=== PATIENT | female | born 1955 | race Caucasian/White ===

== ENCOUNTER → 2016-11-23 | Outpatient (CLI) | payer OTHER | LOC: CIMAGING 12:05 | DX: Z12.31 Encounter for screening mammogram for malignant neoplasm of breast (principal) | CPT/HCPCS: G0202 ==

== ENCOUNTER → 2017-05-18 | Outpatient (CLI) | payer OTHER | LOC: FIMAGING 18:22 | PROVIDERS: ATTEND Physician Assistant | DX: M48.02 Spinal stenosis, cervical region (principal); M47.22 Other spondylosis with radiculopathy, cervical region ==

== ENCOUNTER 2017-06-30 12:06 | Day surgery (SDC) | payer OTHER ==
[2017-06-30] MEDS ORDERED: NALOXONE HCL 0.4 MG/ML INJ IVP PRN (12:32)
[2017-06-30] MEDS ORDERED: MIDAZOLAM 2 MG/2 ML VIAL IVP PRN (12:32)
[2017-06-30] MEDS ORDERED: FLUMAZENIL 0.5 MG/5 ML MDV IVP PRN (12:32)
[2017-06-30] MEDS ORDERED: fentaNYL 100 MCG/2 ML INJ IVP PRN (12:32)
[2017-06-30] MEDS ORDERED: MEPERIDINE 25 MG/ML SYR IVP PRN (12:32)
[2017-06-30] MEDS ORDERED: NS 1,000 ML IV SCH (12:45)
[2017-06-30 13:10] VITALS: PULSE 64; RESP 16; TEMP 96.8
--- NOTE | 2017-06-30 13:47 | PDPROPOC ---
Sedation Plan of Care Sedation Plan of Care: vital signs stable, mental status noted, patient educated of risks, benefits, alternatives, patient can tolerate sedation ASA Classification: ASA 1 Planned drugs: fentanyl, midazolam Mallampati Score: Class 1 Mallampati Reference Image: Patient passed 3-3-2 rule?: Yes
--- NOTE | 2017-06-30 13:49 | PDGENHP ---
History & Physical Chief Complaint: C/S PAIN History of Present Illness: NECK PAIN RADIATING RT ARM, WITH NUMBNESS AND TINGLING. SOMETIMES FIRST THING WHEN AWAKE. SHOOTING ELECRICAL SENSATION DOWN RT ARM. Pertinent Past, Social, Family History: WORKS FOR [employer] Relevant Physical Exam: NORMAL PULSES. MRI REVIEWED Cardiorespiratory Assessment: RRR, CTA
[2017-06-30 14:22] VITALS: O2SAT 100
[2017-06-30] MEDS ORDERED: LIDOCAINE 1% 300 MG/30 ML SDV ONE (14:30)
[2017-06-30] MEDS ORDERED: TRIAMCINOLONE ACETONIDE 200 MG/5 ML MDV IM ONE (14:30)
[2017-06-30] MEDS ORDERED: IOPAMIDOL (ISOVUE-M 300) 15 ML VIAL ONE (14:30)
--- NOTE | 2017-06-30 15:50 | PDRADPN ---
Radiology Procedure Note Date of Procedure: 06/30/17 Radiologist: Tammy Walker Anesthesia: IV Sedation Pre-op Diagnosis: neck pain Post-op Diagnosis: same Indication: LT arm radiculopathy Procedure: C5-6 KOTA Finding(s): good distribution Inf/Abcess present in the surg proc area at time of surgery?: No EBL: Minimal Complications: None
[2017-06-30 16:08] VITALS: BP 130/73
== END 2017-06-30 16:04 | disposition home or self-care (01) ==
LOC: FIMAGING 12:06
PROVIDERS: ATTEND Physician Assistant
PROC: 3E0R33Z Introduction of Anti-inflammatory into Spinal Canal, Percutaneous Approach (ICD-10-PCS; principal; 2017-06-30 14:45)
DX: M54.12 Radiculopathy, cervical region (principal); R20.2 Paresthesia of skin
CPT/HCPCS: J2250; J3010; J3301; Q9967

== ENCOUNTER 2017-07-31 19:22 | Inpatient (IN) | payer OTHER ==
--- NOTE | 2017-07-31 20:42 | EDPHY ---
H & P Time Seen by Provider: 07/31/17 20:42 HPI/ROS: Chief complaint. Abdominal pain HPI. 62-year-old female presents emergency department left lower quadrant abdominal pain for 1 day. No fever. It hurts to walk. She feels bloated. No vomiting or diarrhea. Patient had a CT earlier today which shows free air and left lower quadrant diverticulitis. She has not had this before. No chest discomfort or trouble breathing. No urinary symptoms. ROS Constitutional. no fever/chills, no weakness Eyes. no problems with vision ENT. no sore throat, no nasal drainage Cardiovascular. no chest pain Respiratory. no shortness of breath, no cough Abdominal. Left lower quadrant abdominal pain . no problems urinating MS. no calf pain/swelling, no neck/back pain, no joint pain Skin. no rash Lymph. no swollen glands Neuro. no headache, no dizziness, no difficulty walking or with speech Past Medical/Surgical History: Hysterectomy, orthopedic surgeries Social History: , nonsmoker, no alcohol Smoking Status: Former smoker Physical Exam: General Appearance: Alert well-developed female mild distress vital signs are stable Eyes: Pupils equal and round no pallor or injection. ENT, Mouth: Mucous membranes are moist. Respiratory: There are no retractions, lungs are clear to auscultation. Cardiovascular: Regular rate and rhythm. Gastrointestinal: Abdomen is soft with left lower quadrant tenderness to palpation. No masses. Normal bowel sounds Neurological: Awake and alert, sensory and motor exams grossly normal. Skin: Warm and dry, no rashes. Musculoskeletal: Neck is supple nontender. Extremities symmetrical, full range of motion. Psychiatric: Patient is oriented X 3, there is no agitation. Constitutional: Initial Vital Signs Temperature (C) 36.9 C 07/31/17 19:29 Heart Rate 90 07/31/17 19:29 Respiratory Rate 17 07/31/17 19:29 Blood Pressure 115/61 07/31/17 19:29 O2 Sat (%) 91 L 07/31/17 19:29 O2 Delivery Mode Room Air Allergies/Adverse Reactions: Sulfa (Sulfonamide Antibiotics) Allergy (Intermediate, Verified 06/23/17 10:46) Hives Penicillins Allergy (Verified 07/31/17 19:34) Home Medications: Medication Instructions Recorded Aspirin 81mg (*) 81 mg PO DAILY 06/23/17 CALCIUM PO HS 06/23/17 Estrogens, Conjugated tab 06/23/17 Fish Oil 1,000 mg Capsule 1 tab PO DAILY 06/23/17 Multivitamin 1 tab PO DAILY 06/23/17 Vitamin C PO DAILY 06/23/17 Medical Decision Making - Diagnostics Imaging Results: CT abdomen pelvis with IV contrast reviewed by me as well as in consultation with Dr. Jim Zaidi shows several small punctate areas of free air near the diaphragm. It also shows left descending colon diverticulitis. No abscess Procedures: IV normal saline. IV Dilaudid, Flagyl, Levaquin ED Course/Re-evaluation: I consulted discussed case Dr. Zaidi who feels that this at this point is a medically managed illness. I consulted and discussed case with Dr. Tirado, hospitalist who agrees to the admission Patient and and I discussed imaging and lab results. We discussed treatment plan including recommendation for admission. They expressed understanding and agreement Re-evaluation 9:35 p.m. patient is stable Differential Diagnosis: Diverticulitis with apparent colon perforation and small for amount of free air. No obvious abscess yet - Data Points Laboratory Results: Laboratory Results 07/31/17 21:13 07/31/17 07/31/17 21:13 21:13 WBC 6.64 10^3/uL 10^3/uL (3.80-9.50) RBC 4.33 10^6/uL 10^6/uL (4.18-5.33) Hgb 13.4 g/dL g/dL (12.6-16.3) Hct 39.1 % % (38.0-47.0) MCV 90.3 fL fL (81.5-99.8) MCH 30.9 pg pg (27.9-34.1) MCHC 34.3 g/dL g/dL (32.4-36.7) RDW 14.7 % % (11.5-15.2) Plt Count 372 10^3/uL 10^3/uL (150-400) MPV 8.3 fL L fL (8.7-11.7) Neut % (Auto) 51.6 % % (39.3-74.2) Lymph % (Auto) 38.6 % % (15.0-45.0) Forest % (Auto) 7.8 % % (4.5-13.0) Eos % (Auto) 1.2 % % (0.6-7.6) Baso % (Auto) 0.5 % % (0.3-1.7) Nucleat RBC Rel Count 0.0 % % (0.0-0.2) Absolute Neuts (auto) 3.43 10^3/uL 10^3/uL (1.70-6.50) Absolute Lymphs (auto) 2.56 10^3/uL 10^3/uL (1.00-3.00) Absolute Monos (auto) 0.52 10^3/uL 10^3/uL (0.30-0.80) Absolute Eos (auto) 0.08 10^3/uL 10^3/uL (0.03-0.40) Absolute Basos (auto) 0.03 10^3/uL 10^3/uL (0.02-0.10) Absolute Nucleated RBC 0.00 10^3/uL 10^3/uL (0-0.01) Immature Gran % 0.3 % % (0.0-1.1) Immature Gran # 0.02 10^3/uL 10^3/uL (0.00-0.10) Sodium Pending Potassium Pending Chloride Pending Carbon Dioxide Pending Anion Gap Pending BUN Pending Creatinine Pending Estimated GFR Pending Glucose Pending Calcium Pending Medications Given: Discontinued Medications Sodium Chloride (Ns) 1,000 mls @ 0 mls/hr IV EDNOW ONE; Wide Open PRN Reason: Protocol Stop: 07/31/17 20:52 Last Admin: 07/31/17 21:23 Dose: 1,000 mls Departure - Departure Disposition: [facility] Inpatient Acute Clinical Impression: Diverticulitis large intestine Qualifiers: Diverticulitis bleeding: without bleeding Diverticulitis complication: with perforation Qualified Code(s): K57.20 - Diverticulitis of large intestine with perforation and abscess without bleeding Condition: Fair Referrals: Cecile Lucas MD [Primary Care Provider] - As per Instructions
[2017-07-31] MEDS ORDERED: NS 1,000 ML IV ONE (20:51)
[2017-07-31] MEDS ORDERED: HYDROmorphONE/DILAUDID 1 MG/ML INJ IVP ONE (21:07)
[2017-07-31] MEDS ORDERED: ONDANSETRON 4 MG/2 ML VIAL ONE (21:20)
[2017-07-31] MEDS ORDERED: ONDANSETRON 4 MG/2 ML VIAL IVP ONE (21:22)
[2017-07-31 21:27] LABS: PLATELET COUNT 372 10^3/uL (150-400)
[2017-07-31] MEDS ORDERED: HYDROCODONE/APAP 5/325 TAB PO PRN (23:09)
[2017-07-31] MEDS ORDERED: LORazepam 2 MG/ML INJ IVP PRN (23:09)
[2017-07-31] MEDS ORDERED: ONDANSETRON 4 MG/2 ML VIAL IVP PRN (23:09)
[2017-07-31] MEDS: HYDROmorphONE/DILAUDID 1 MG/ML INJ IVP PRN (23:32)
[2017-07-31] MEDS: LR 1,000 ML IV SCH (23:37)
--- NOTE | 2017-07-31 23:53 | PDGENHP ---
History and Physical - Chief Complaint Abdominal pain. - History of Present Illness Source-patient provides history appears reliable. EMR reviewed and case discussed with accepting provider. HPI-this is a pleasant 17-year-old female with past medical history significant for premenopausal flushing otherwise healthy who presents emergency department today with complaints of left lower quadrant cramping abdominal pain and distention. Patient states that her symptoms started approximately 24 hr prior to admission. She denies any fevers has chronic chills and nothing acute no sweats. He denies any nausea vomiting or diarrhea. She denies any melena or hematochezia. Patient without any dysuria hematuria. Patient denies any the traveling camping or sick contacts. 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 A CT abdomen pelvis with contrast was ordered given patient's increasing symptoms as outpatient and findings were significant for diverticulitis with microperforations. Surgery was consulted from the emergency department, he did not recommend any surgical interventions or other medical management and continued IV antibiotics. At time of interview on the medical floor patient was reporting improvement in her pain but was still persistent worse with movement and distention but no worsening symptoms. History Information - Allergies/Home Medication List Allergies/Adverse Reactions: Sulfa (Sulfonamide Antibiotics) Allergy (Intermediate, Verified 06/23/17 10:46) Hives Penicillins Allergy (Verified 07/31/17 19:34) Home Medications: Estradiol [Estradiol] 2 mg PO DAILY 07/31/17 [Last Taken 07/31/17] I have personally reviewed and updated: family history, medical history, social history, surgical history - Past Medical History Additional medical history: Premenopausal flushing on hormone replacement therapy - Surgical History Additional surgical history: Total abdominal hysterectomy, colonography ( patient reports she is not a candidate for colonoscopy due to scarring related to hysterectomy), right great toe joint replacement - Family History Additional family history: Father-mi age 70s - Social History Smoking Status: Former smoker Tobacco Use: Cigarettes Alcohol Use: Rarely (Occasional glass a wine) Drug Use: None Additional social history: Patient is lives with her Ryan. Cor status is full. Patient with advance directives Ryan Griffith is MDPOA. Review of Systems Review of Systems: ROS: 10pt was reviewed & negative except for what was stated in HPI & below Constitutional: Reports: chills (Always cold). Denies: fever, weakness EENMT: Denies: blurred vision, nose congestion, sore throat Cardiac: Reports: no symptoms Respiratory: Reports: no symptoms Gastrointestinal: Reports: abdominal pain (LQ), abdominal distention, other ( See HPI). Denies: vomitting, black stools, constipation, diarrhea, nausea Genitourinary: Reports: no symptoms Muscolosketal: Reports: no symptoms Skin: Reports: no symptoms Neurological: Reports: no symptoms Hematologic/Lymphatic: Reports: no symptoms Physical Exam Physical Exam: Selected Entries 07/31/17 19:29 Blood Pressure Automatic Method Heart Rate 90 Respiratory 17 Rate O2 Sat (%) 91 L Temperature (C) 36.9 C Blood Pressure 115/61 Mean Arterial 79 Pressure (MAP) O2 Delivery Room Air Mode Temperature Oral Source Temp Pulse Resp BP Pulse Ox 36.9 C 68 16 114/43 L 93 07/31/17 23:21 07/31/17 23:21 07/31/17 23:21 07/31/17 23:21 07/31/17 23:21 Constitutional: no apparent distress, other (Pleasant adult female is lying comfortably in bed. Well groomed.) Eyes: PERRL, No pale conjunctiva, No scleral injection Ears, Nose, Mouth, Throat: moist mucous membranes, No poor dentition Cardiovascular: regular rate and rhythym, no murmur, rub, or gallop, pulses symmetric bilaterally, No edema Peripheral Pulses: 2+: dorsalis-pedis (R), dorsalis-pedis (L) Respiratory: no respiratory distress, no rales or rhonchi, clear to auscultation Gastrointestinal: tenderness (Greatest left lower), distension, other ( Hypoactive bowel sounds in all but the right lower quadrant with normal bowel sounds.), No guarding, No rebound Genitourinary: no bladder tenderness, No dubois in urethra Skin: warm, normal color, No rash Musculoskeletal: full muscle strength, other (Patient able to sit up independently.), No generalized weakness Neurologic: AAOx3, other (Grossly nonfocal), No weakness, No facial droop Psychiatric: not anxious, not encephalopathic, thought process linear Lab Data & Imaging Review 07/31/17 21:13 07/31/17 21:13 WBC 6.64 10^3/uL (3.80-9.50) 07/31/17 21:13 RBC 4.33 10^6/uL (4.18-5.33) 07/31/17 21:13 Hgb 13.4 g/dL (12.6-16.3) 07/31/17 21:13 Hct 39.1 % (38.0-47.0) 07/31/17 21:13 MCV 90.3 fL (81.5-99.8) 07/31/17 21: MCH 30.9 pg (27.9-34.1) 07/31/17 21: MCHC 34.3 g/dL (32.4-36.7) 07/31/17: RDW 14.7 % (11.5-15.2) 07/31/17: Plt Count 372 10^3/uL (150-400) 07/31/17 21:13 MPV 8.3 fL (8.7-11.7) L 07/31/17 21: Neut % (Auto) 51.6 % (39.3-74.2) 07/31/17 21: Lymph % (Auto) 38.6 % (15.0-45.0) 07/31/17: Gage % (Auto) 7.8 % (4.5-13.0) 07/31/17: Eos % (Auto) 1.2 % (0.6-7.6) 07/31/17: Baso % (Auto) 0.5 % (0.3-1.7) 07/31/17: Nucleat RBC Rel Count 0.0 % (0.0-0.2) 07/31/17: Absolute Neuts (auto) 3.43 10^3/uL (1.70-6.50) 07/31/17: Absolute Lymphs (auto) 2.56 10^3/uL (1.00-3.00) 07/31/17: Absolute Monos (auto) 0.52 10^3/uL (0.30-0.80) 07/31/17: Absolute Eos (auto) 0.08 10^3/uL (0.03-0.40) 07/31/17 21:13 Absolute Basos (auto) 0.03 10^3/uL (0.02-0.10) 07/31/17 21:13 Absolute Nucleated RBC 0.00 10^3/uL (0-0.01) 07/31/17 21:13 Immature Gran % 0.3 % (0.0-1.1) 07/31/17 21:13 Immature Gran # 0.02 10^3/uL (0.00-0.10) 07/31/17 21:13 Sodium 137 mEq/L (135-145) 07/31/17 21:13 Potassium 4.2 mEq/L (3.5-5.2) 07/31/17 21:13 Chloride 104 mEq/L (97-110) 07/31/17 21:13 Carbon Dioxide 23 mEq/l (22-31) 07/31/17 21:13 Anion Gap 10 mEq/L (8-16) 07/31/17 21:13 BUN 14 mg/dL (7-23) 07/31/17 21:13 Creatinine 0.8 mg/dL (0.6-1.0) 07/31/17 21:13 Estimated GFR > 60 07/31/17 21:13 Glucose 97 mg/dL (70-100) 07/31/17 21:13 Calcium 9.0 mg/dL (8.5-10.4) 07/31/17 21:13 Imaging Review: CT abd/pelvis image and report reviewed. Contrast Enhanced CT Scan of the Abdomen and Pelvis Clinical History: 62-year-old female with known diverticulosis, complaining of left sided abdominal pain and bloating since midnight. Her surgical history is notable for a prior remote hysterectomy. ICD 10 Diagnostic Code: R10.32. Technique: Following oral contrast, and the uncomplicated intravenous administration of 90 mL of Isovue-300, a multidetector helical CT scan was obtained from the lung bases inferiorly through the proximal femora, with images reformatted at 5.00 and 1.50 mm increments, and reviewed at a variety of window and level settings. Parasagittal and paracoronal reconstructed images are reviewed on the workstation. The DFOV is 45.8 cm. Dose reduction techniques were utilized. Comparison Study: Pelvic sonography, dated 05/26/2015. Findings: Lung Bases: There is a 3 mm noncalcified nodule in the anterolateral left lower lobe on series 4, image 34. It is optional to obtain a follow-up CT in 12 months in this patient with a prior remote tobacco use history, according to Fleischner Society guidelines. There is no pleural or pericardial effusion. There is a small hiatal hernia present. Liver: There is a punctate hypodensity in the lateral left hepatic lobe. Bile Ducts: Normal. Gallbladder: There are no calcified gallstones, wall thickening, or pericholecystic fluid. The gallbladder is partially contracted. Pancreas: Normal. Spleen: There is a single punctate calcification, consistent with old granulomatous disease. A tiny accessory splenule is seen anterolaterally on the left on series 4 image 57. Adrenal Glands: Normal. Kidneys/Ureters/Urinary Bladder: The kidneys are normal in size, shape, position, and symmetrical in function.] The urinary bladder is moderately distended. GI Tract/Mesentery: The stomach, small bowel, and the appendix appear normal.] There are numerous diverticula associated with the descending colon, with associated pericolonic inflammation (please reference axial series 4, images 114-166). There is a tiny reactive lymph node ( on series 4 image 142) which measures 7 x 9 mm in diameter. There is no pericolonic abscess observed. There is moderate amount of fecal material seen within the sigmoid colon and rectum. Orally ingested contrast has made its way through the small bowel into the cecum, ascending colon, and the transverse colon. Peritoneum: There are some rare dots of free air near the diaphragm (please reference axial series 4, images 39 and 51-55), and also on series 4 image 73.] Vessels: The abdominal aorta is normal in size, and tapers normally. The IVC is normal in caliber. The splenic vein, superior mesenteric vein, and the main portal vein are patent. Reproductive Organs: The uterus is surgically absent. There is no adnexal mass. Abdominal Wall: Negative. Osseous Structures: There is moderately advanced degenerative disk space narrowing from T8-T9 through T11-T12 and there is severe degenerative disk space narrowing with vacuum disk phenomenon at L4-L5 and L5-S1. There is trace degenerative anterolisthesis at L4-L5. There is some degenerative change associated with the SI joints. Impression: 1. Descending colon diverticulitis, with no mechanical obstruction or pericolonic abscess. There is an isolated presumably reactive mesenteric lymph node, and there also appear to be some dots of free air up near the diaphragm. Consider follow-up CT reevaluation after appropriate treatment to assure resolution. 2. Small hiatal hernia. 3. There is a 3 mm noncalcified pulmonary nodule in the anterolateral left lower lobe. It is optional to obtain a [address] follow-up in this patient with a prior tobacco use history according to Fleischner Society guidelines. 4. Status post hysterectomy. Visualized and Interpreted imaging results: Yes Assessment & Plan Assessment: Pleasant 52 year female on ERT who presents to the emergency department today with complaints of 24 hr of left lower quadrant abdominal pain and abdominal distension #Diverticulitis large intestine (Acute) - patient without any evidence of SIRS/ sepsis. She has been started on Levaquin and Flagyl which will continue IV. Will place patient on NPO status with some ice chips only to allow for some bowel rest. General surgery consulted from the emergency department does not recommend any surgical intervention at this time. No further imaging will monitor clinically. # Micro perforation - plan as above. #Abdominal pain - pain persistent but improved. Dilaudid available p.r.n. is some Ativan p.r.n. for spasm and pain. #Lung nodule left lower lobe-this is not discussed with the patient but will need recommendations at discharge anticipate follow-up within 1 year for repeat imaging to ensure stability. Premenopausal flushing - resume estradiol when diet is advanced FEN - continuous IV fluids with LR overnight. Ice chips only at this time sparingly. Electrolytes will be monitored and replaced if needed. Reassessment in a.m. regarding advancement in diet. PPx - SCDs. Reassess in a.m. if patient should stay additional be considered Lovenox Core-full. Patient's Nicholas Gladis is MD FLAHERTY if needed. Dispo-patient has been admitted to inpatient status given her acute diverticulitis with microperforations and needs close monitoring on the medical floor as well as IV antibiotic therapy.
[2017-08-01 06:01] LABS: PLATELET COUNT 317 10^3/uL (150-400)
[2017-08-01] MEDS: HYDROmorphONE/DILAUDID 1 MG/ML INJ IVP PRN (06:45)
--- NOTE | 2017-08-01 06:54 | PDMN ---
Medical Necessity Medical necessity: Pt meets INPT criteria per [place] and [facility] [place] Diverticulitis, Acute (with microperforations, abd tenderness; requiring IVABx, IVF, IV Dilaudid , bowel rest).
[2017-08-01] MEDS: ENOXAPARIN 40 MG/0.4 ML SYR SC SCH (09:53)
[2017-08-01] MEDS: LR 1,000 ML IV SCH ×2 (09:56→20:34)
[2017-08-01] MEDS: ACETAMINOPHEN 325 MG TAB PO PRN ×2 (11:08→20:30)
--- NOTE | 2017-08-01 11:27 | HOSPPROG ---
Hospitalist Progress Note Assessment/Plan: 62 yo F W acute diverticulitis diverticulitis: benign exam levo/flagyl ok for clear liquid diet pulm nodule: has been followed to stability as outpt proph: lmwh pain: prn pain meds HARRIS: suspected caffeine withdrawal dispo: inpt Subjective: CT images reviewed/interp by me. c/o HARRIS Objective: Vital Signs Temp Pulse Resp BP Pulse Ox 36.7 C 73 18 108/59 L 94 08/01/17 07:31 08/01/17 07:31 08/01/17 07:31 08/01/17 07:31 08/01/17 07:31 Laboratory Results 08/01/17 05:34 08/01/17 05:34 07/31/17 08/01/17 08/02/17 05:59 05:59 05:59 Intake Total 1000 Output Total 700 400 Balance 300 -400 - Physical Exam Constitutional: no apparent distress, appears nourished Eyes: PERRL, anicteric sclera Ears, Nose, Mouth, Throat: moist mucous membranes, hearing normal Cardiovascular: regular rate and rhythym, no murmur, rub, or gallop Respiratory: no respiratory distress, clear to auscultation Gastrointestinal: normoactive bowel sounds, soft, non-tender abdomen, No guarding, No rebound Genitourinary: No dubois in urethra Skin: warm, normal color Musculoskeletal: full muscle strength, no muscle tenderness Neurologic: AAOx3, sensation intact bilaterally Psychiatric: interacting appropriately Lymph, Heme, Immunologic: no cervical LAD ICD10 Worksheet Patient Problems: Problems Problem Status Onset Diverticulitis large intestine Acute
[2017-08-01] MEDS ORDERED: ESTRADIOL 2 MG PO SCH (11:45)
--- NOTE | 2017-08-01 16:38 | ASMTCMCOM ---
CM Note CM Note Notes: Chart reviewed. Met with patient who lives independently with good support, no needs identified. Cm available should needs arise. Date Signed: 08/01/2017 04:37 PM Electronically Signed By:Camila Nguyễn RN
[2017-08-01] MEDS: ESTRADIOL 2 MG PO SCH (17:20)
[2017-08-01] MEDS ORDERED: levOFLOXACIN 500 MG/DEXTROSE 100 ML IV SCH (21:00)
[2017-08-01 23:02] VITALS: RESP 16
[2017-08-02 07:44] VITALS: BP 121/70; PULSE 74; TEMP 98.5
[2017-08-02] MEDS: ESTRADIOL 2 MG PO SCH (08:06)
[2017-08-02] MEDS: ENOXAPARIN 40 MG/0.4 ML SYR SC SCH (08:15)
[2017-08-02] MEDS: LR 1,000 ML IV SCH (08:15)
--- NOTE | 2017-08-02 09:02 | HOSPPROG ---
Hospitalist Progress Note Assessment/Plan: 62 yo F W acute diverticulitis diverticulitis: benign exam levo/flagyl ok for clear liquid diet pulm nodule: has been followed to stability as outpt proph: lmwh pain: prn pain meds HARRIS: suspected caffeine withdrawal resolved w caffeine dispo: inpt Subjective: episode of explosive diarrhea overnight Objective: Vital Signs Temp Pulse Resp BP Pulse Ox 36.9 C 74 16 121/70 H 95 08/02/17 07:44 08/02/17 07:44 08/02/17 07:44 08/02/17 07:44 08/02/17 07:44 Laboratory Results 08/01/17 05:34 08/01/17 05:34 08/01/17 08/02/17 08/03/17 05:59 05:59 05:59 Intake Total 1000 1825 Output Total 700 2600 Balance 300 -775 - Physical Exam Constitutional: no apparent distress, appears nourished Eyes: anicteric sclera, EOMI Ears, Nose, Mouth, Throat: moist mucous membranes, hearing normal Cardiovascular: regular rate and rhythym, no murmur, rub, or gallop Respiratory: no respiratory distress, no rales or rhonchi Gastrointestinal: normoactive bowel sounds, other (LLQ tenderness but no rebound or guarding) Genitourinary: no bladder fullness, No dubois in urethra Skin: warm, normal color Musculoskeletal: full muscle strength Neurologic: AAOx3 ICD10 Worksheet Patient Problems: Problems Problem Status Onset Diverticulitis large intestine Acute
[2017-08-02 13:53] VITALS: O2SAT 96
[2017-08-02] MEDS: ACETAMINOPHEN 325 MG TAB PO PRN (14:05)
--- NOTE | 2017-08-02 15:42 | GDS ---
[f rep st] DISCHARGE SUMMARY DISCHARGE DIAGNOSIS: Acute diverticulitis. HOSPITAL COURSE: Please see admission history and physical by Dr. Kelly Ware. The patient present ed to [facility] [place] on the . She had an abdominal CT that showed descending colon diverticulitis. No obst ruction or pericolonic abscess. The patient was treated with levofloxacin and metronidazole. Her diet was advanced. She did not hav e sepsis. She was improving on the day of the . The patient had some diarrhea overnight but the n after eating some today felt well was interested in discharge so I discharged her home. She was advised to seek care for worsening fever, chills, or abdominal pain. /[id number]/MODL
--- NOTE | 2017-08-03 10:09 | ASDISCHSUM ---
Discharge Information Plan Status:Home with No Needs Medically Cleared to Leave: Discharge Date:08/02/2017 04:56 PM CM D/C Disposition:Home, Routine, Self-Care ADT D/C Disposition:Home, Routine, Self-Care Projected Discharge Date:08/02/2017 04:56 PM Transportation at D/C: Discharge Delay Reason: Follow-Up Date:08/02/2017 04:56 PM Discharge Slot: Final Diagnosis: Placement Information Patient Contact Information Contact Name:JAMES Relationship: Address:[address] Work Phone: City:[place] Alternate Phone: [facility] [address]/Zip Code:[place] [address] Email: Financial Information Financial Class:[facility] Primary Plan Desc:[facility] Primary Plan Number:[id number] Secondary Plan Desc: Secondary Plan Number: Assessment Information [facility] CM Progress Note CM Note CM Note Notes: Chart reviewed. Met with patient who lives independently with good support, no needs identified. Cm available should needs arise. Date Signed: 08/01/2017 04:37 PM Electronically Signed By:Camila Nguyễn RN Intervention Information
== END 2017-08-02 16:56 | disposition home or self-care (01) | DRG 392 ==
LOC: F3E 23:11
PROVIDERS: ADMIT Hospitalist; ATTEND Hospitalist
DX: K57.32 Diverticulitis of large intestine without perforation or abscess without bleeding (principal); R91.8 Other nonspecific abnormal finding of lung field; Z87.891 Personal history of nicotine dependence; Z88.0 Allergy status to penicillin
CPT/HCPCS: 96365; J1170; J1650; J1956; J2060; J2405

== ENCOUNTER → 2017-07-31 | Outpatient (CLI) | payer OTHER ==
[~2017-07-31] MED LIST: IOPAMIDOL (ISOVUE-300) 100 ML BTL ONE
== END ==
LOC: CIMAGING 15:25
PROVIDERS: ATTEND Family Medicine
DX: K57.32 Diverticulitis of large intestine without perforation or abscess without bleeding (principal); K44.9 Diaphragmatic hernia without obstruction or gangrene; R91.1 Solitary pulmonary nodule
CPT/HCPCS: 74177-PO; Q9967

== ENCOUNTER 2017-11-24 12:39 | Day surgery (SDC) | payer OTHER ==
[2017-11-24] MEDS ORDERED: GLUCAGON HCL 1 MG VIAL IVP PRN (12:45)
[2017-11-24] MEDS ORDERED: fentaNYL 100 MCG/2 ML INJ IVP PRN (12:45)
[2017-11-24] MEDS ORDERED: MIDAZOLAM 2 MG/2 ML VIAL IVP PRN (12:45)
[2017-11-24] MEDS ORDERED: ALTEPLASE 2 MG VIAL IVP PRN (12:45)
[2017-11-24] MEDS ORDERED: NALOXONE HCL 0.4 MG/ML INJ IVP PRN (12:45)
[2017-11-24] MEDS ORDERED: HEPARIN 10,000 UNIT/10 ML MDV (1,000 UNIT/ML) IVP PRN (12:45)
[2017-11-24] MEDS ORDERED: NS 1,000 ML IV SCH (12:45)
[2017-11-24] MEDS ORDERED: FLUMAZENIL 0.5 MG/5 ML MDV IVP PRN (12:45)
[2017-11-24] MEDS ORDERED: PROTAMINE SULFATE 50 MG/5 ML VIAL IVP PRN (12:45)
[2017-11-24] MEDS ORDERED: MEPERIDINE 25 MG/ML SYR IVP PRN (12:45)
[2017-11-24] MEDS ORDERED: TRIAMCINOLONE ACETONIDE 200 MG/5 ML MDV IM ONE (14:16)
[2017-11-24] MEDS ORDERED: IOPAMIDOL (ISOVUE-M 300) 15 ML VIAL ONE (14:16)
--- NOTE | 2017-11-24 15:01 | PDGENHP ---
History & Physical Chief Complaint: recurrent neck pain History of Present Illness: R>L arm numbness and neck pain. Pertinent Past, Social, Family History: had previous c/s nikolay which helped with identical symptoms. Relevant Physical Exam: rt arm numbness with certain positions. Cardiorespiratory Assessment: rrr, cta
--- NOTE | 2017-11-24 15:02 | PDPROPOC ---
Sedation Plan of Care Sedation Plan of Care: vital signs stable, mental status noted, patient educated of risks, benefits, alternatives, patient can tolerate sedation ASA Classification: ASA 2 Planned drugs: fentanyl, midazolam Mallampati Score: Class 1 Mallampati Reference Image: Patient passed 3-3-2 rule?: Yes
[2017-11-24] MEDS ORDERED: ONDANSETRON 4 MG/2 ML VIAL IVP PRN (16:19)
--- NOTE | 2017-11-24 16:23 | PDRADPN ---
Radiology Procedure Note Date of Procedure: 11/24/17 Radiologist: Tammy Walker Anesthesia: IV Sedation Pre-op Diagnosis: NECK PAIN Post-op Diagnosis: SAME Indication: RECURRENT PAIN Procedure: C5-6 [place] Inf/Abcess present in the surg proc area at time of surgery?: No Complications: NONE
[2017-11-24 17:28] VITALS: BP 139/69
== END 2017-11-24 17:25 | disposition home or self-care (01) ==
LOC: FIMAGING 12:39
PROVIDERS: ATTEND Physician Assistant
PROC: 3E0S33Z Introduction of Anti-inflammatory into Epidural Space, Percutaneous Approach (ICD-10-PCS; principal; 2017-11-24 15:50)
DX: M54.12 Radiculopathy, cervical region (principal)
CPT/HCPCS: J2250; J2310; J3010; J3301; Q9967

== ENCOUNTER → 2017-11-30 | Outpatient (CLI) | payer OTHER | LOC: BRMIMAGING 13:24 | PROVIDERS: ATTEND Surgery Plastic and Reconstructive Surgery | DX: Z12.31 Encounter for screening mammogram for malignant neoplasm of breast (principal) ==

== ENCOUNTER → 2017-12-22 | Outpatient (CLI) | payer OTHER | LOC: FIMAGING 12:19 | PROVIDERS: ATTEND Physician Assistant | DX: K57.92 Diverticulitis of intestine, part unspecified, without perforation or abscess without bleeding (principal) | CPT/HCPCS: Q9967 ==

== ENCOUNTER → 2018-03-31 | Outpatient (CLI) | payer OTHER | LOC: FIMAGING 08:37 | PROVIDERS: ATTEND Orthopaedic Surgery Hand Surgery | DX: M25.432 Effusion, left wrist (principal); M65.88 Other synovitis and tenosynovitis, other site ==

== ENCOUNTER 2018-04-17 05:44 | Day surgery (SDC) | payer OTHER ==
--- NOTE | 2018-04-16 09:22 | SOAPPROG ---
SOAP Progress Note Assessment/Plan: HISTORY AND PHYSICAL Name HEATHER PATHAK (63yo, F) ID# [id number] 1955 Service Dept[address] MAIN OFFICE Provider JENSEN AREVALO M.D. Insurance Med Primary: [employer] Insurance # : [id number] Policy/Group # : [id number] Prescription: DSTPS - Member is eligible. details Chief Complaint Patient presents today with a left dorsal hand ganglion cyst. Patient states Dr. Koroma removed cyst in office April 2017 but cyst has come back with discomfort Patient's Care Team Primary Care Provider: LULY BATISTA MD: [facility] [place] [address], [facility] [address] [address], , Patient's Pharmacies [facility] #[id number] (ER[facility]): [address] [facility] [address], Ph , Vitals None recorded. Allergies Allergies not reviewed (last reviewed 01/22/2018) SULFA (SULFONAMIDE ANTIBIOTICS) Medications Reviewed Medications estradiol 2 mg tablet 02/22/18 filled [employer] hyoscyamine 0.125 mg sublingual tablet 01/23/18 filled [employer] Vaccines None recorded. Problems Reviewed Problems Mass of hand - Onset: 03/12/2018 Cervical radiculopathy - Onset: 05/12/2017 Tear of meniscus of knee - Onset: 05/12/2017, Right Family History Family History not reviewed (last reviewed 01/22/2018) Father - Heart disease ( age: 75) Social History Social History not reviewed (last reviewed 01/22/2018) Smoking Status: Former smoker Non-smoker Occupation: Urgent Care Registrar Employer: [employer] Occupational health risks: Sitting at a computer for long periods of time Has smoked since age: 17 Chewing tobacco: none Alcohol intake: Occasional Alcohol-years of use: 40 Caffeine intake: Moderate Illicit drugs: None Exercise level: Moderate Sporting activities: None Hand Dominance: Right Education: 2 Year College Live alone or with others?: with others Surgical History Reviewed Surgical History Other - 12/15/2009 Other - 12/15/1996 [employer] History (not configured) Obstetric History None recorded. Past Pregnancies None recorded. Past Medical History Reviewed Past Medical History Arthritis: Y GERD/Reflux: Y Gout: Y Screening None recorded. HPI This is a very pleasant 63 year old female [facility] urgent care employee with: -04/2017 -- removal of a left dorsal hand mass by Dr. Neha Koroma in her clinic -11/2017 -- recurrence of left dorsal hand mass -03/2018 -- left dorsal and ulnar wrist swelling and pain She presents today to discuss the results of her recent left wrist MRI. ROS ROS as noted in the HPI Physical Exam Patient is a 63-year-old female. Bilateral wrist examination Inspection/palpation: Right: Normal resting posture. Left: 2cm by 2 cm mass overlying the dorsal hand c/w hypertrophic synovial reaction, nicely healed transverse incision overlying dorsal hand. TTP and enlargement overlying the dorsal aspect of the DRUJ Wrist ROM Wrist Flexion: 90 / 90 / 90 Extension: 90 / 90 / 90 Forearm Supination: 0-80 / 0-80 / 0-80 Pronation: 0-80 / 0-80 / 0-80 Wrist/hand strength (R / L / Normal) ECRL/ECRB (C6): 5 / 5 / 5 FCU: 5 / 5 / 5 ECU: 5 / 5 / 5 EDC: 5 / 5 / 5 EPL (PIN): 5 / 5 / 5 FPL (AIN): 5 / 5 / 5 FDS (C8): 5 / 5 / 5 FDP (C8): 5 / 5 / 5 FDP-I (C8 / AIN): 5 / 5 / 5 DI (C8-T1): 5 / 5 / 5 PI (C8-T1): 5 / 5 / 5 Wrist/hand sensory MABC: + / + / + LABC: + / + / + Median: + / + / + Palmar cutaneous: + / + / + Radial: + / + / + SBRN: + / + / + Ulnar: + / + / + DSBUN: + / + / + Assessment / Plan This is a very pleasant 63 year old female [employer] [facility]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: - I have discussed with the patient the risks, benefits, alternatives and complications associated with both non-operative (specifically, observation) and operative (specifically, left wrist DRUJ arthrotomy with possible dorsal distal ulna resection and left wrist extensor tendon debridement and/or repair and/or possible tendon transfer(s)) forms of treatment - The patient fully understands the risks, benefits, alternatives, and complications associated with these forms of treatment and wishes to proceed with operative intervention as outlined above - She has signed the informed consent form for surgery and surgery will be scheduled for the near future. 1. Mass of hand R22.31: Localized swelling, mass and lump, right upper limb NOTE TO RETURN TO WORK/SCHOOL - Note to Provider: Heather Pathak is currently under our care for her left wrist. She will be undergoing surgery in the near future. Following surgery she will need a minimum of one week off work. Please contact our office if you need further details. Return to Office None recorded. Encounter Sign-Off Encounter signed-off by Jensen Arevalo M.D. 04/16/18 09:20 ICD10 Worksheet Patient Problems: Problems Problem Status Onset Diverticulitis large intestine Acute Neck pain Acute
[2018-04-17] MEDS ORDERED: LR 1,000 ML IV ONE (06:00)
[2018-04-17] MEDS ORDERED: LIDOCAINE 1% 2 ML INJ ID PRN (06:00)
--- NOTE | 2018-04-17 06:55 | PDHPUP ---
History & Physical Update H&P update statement: This history and physical update is based on an assessment of the patient which was completed after admission or registration (within 24 hours), but prior to the surgery/procedure. H&P update: H&P reviewed & patient examined, no change in patient's condition since H&P completed
[2018-04-17] MEDS ORDERED: MIDAZOLAM 2 MG/2 ML VIAL IVP ONE (06:56)
[2018-04-17] MEDS ORDERED: BUPIVACAINE 0.5% 30 ML SDV ONE (06:58)
[2018-04-17] MEDS ORDERED: LIDOCAINE 1% 300 MG/30 ML SDV ONE (06:58)
--- NOTE | 2018-04-17 06:59 | PDANEPAE ---
ANE History of Present Illness left hand pain ANE Past Medical History - Cardiovascular History Hx Hypertension: No Hx Arrhythmias: No Hx Chest Pain: No Hx Coronary Artery / Peripheral Vascular Disease: No Hx CHF / Valvular Disease: No Hx Palpitations: No - Pulmonary History Hx COPD: No Hx Asthma/Reactive Airway Disease: No Hx Recent Upper Respiratory Infection: No Hx Oxygen in Use at Home: No Hx Sleep Apnea: No Sleep Apnea Screening Result - Last Documented: Negative Pulmonary History Comment: hx of lung nodules that are stable currently per pt report - Neurologic History Hx Cerebrovascular Accident: No Hx Seizures: No Hx Dementia: No Neurologic History Comment: pinched nerve causing right arm numbness- unable to lay on right side. doing PT currently - Endocrine History Hx Diabetes: No Hypothyroid: No Hyperthyroid: No - Renal History Hx Renal Disorders: No - Liver History Hx Hepatic Disorders: No - Neurological & Psychiatric Hx Hx Neurological and Psychiatric Disorders: No - Cancer History Hx Cancer: No - Congenital Disorder History Hx Congenital Disorders: No - GI History Hx Gastrointestinal Disorders: No Gastrointestinal History Comment: hiatal hernia occ reflux. hx of diverticulitis in 07/2017 was hospitalized at [facility] - Other Health History Other Health History: wears glasses - Chronic Pain History Chronic Pain: No - Surgical History Prior Surgeries: Hysterectomy apprx 20 yr ago. Left big toe joint replacement ANE Review of Systems Review of systems is: negative Review of Systems: - Exercise capacity Exercise capacity: >=4 METS METS (RN): 4 METS ANE Patient History - Allergies Allergies/Adverse Reactions: Penicillins Allergy (Verified 04/17/18 06:11) nausea/vomiting Sulfa (Sulfonamide Antibiotics) Allergy (Verified 04/17/18 06:11) Hives - Home Medications Home Medications: Estradiol 07/31/17 [Last Taken 11/21/17] Herbals/Supplements -Info Only 04/11/18 [Last Taken 04/11/18] Ibuprofen 04/11/18 [Last Taken 04/11/18] Tylenol 04/11/18 [Last Taken 04/14/18] - NPO status NPO Status: no food or drink >8 hours NPO Since - Liquids (Date): 04/16/18 NPO Since - Liquids (Time): 22:00 NPO Since - Solids (Date): 04/16/18 NPO Since - Solids (Time): 22:00 - Anes Hx Anes Hx: no prior problems - Smoking Hx Smoking Status: Former smoker - Alcohol Use Alcohol Use: Occasionally - Family Anes Hx Family Hx Anesthesia Complications: None ANE Labs/Vital Signs - Vital Signs Vital Signs: reviewed preoperatively; see RN documention for details Height: 162.56 cm Weight: 63.049 kg ANE Physical Exam - Airway Neck exam: FROM Mallampati Score: Class 2 Mouth exam: normal dental/mouth exam - Pulmonary Pulmonary: no respiratory distress - Cardiovascular Cardiovascular: regular rate and rhythym - ASA Status ASA Status: II ANE Anesthesia Plan Anesthesia Plan: GA w LMA
[2018-04-17] MEDS ORDERED: CEFAZOLIN 2 GM/DEXTROSE/100 ML BAG IV ONE (07:04)
[2018-04-17] MEDS ORDERED: MIDAZOLAM 2 MG/2 ML VIAL ONE (07:05)
[2018-04-17] MEDS ORDERED: LIDOCAINE 2% 2 ML INJ ONE (07:12)
[2018-04-17] MEDS ORDERED: fentaNYL 100 MCG/2 ML INJ ONE ×2 (07:12→08:00)
[2018-04-17] MEDS ORDERED: PROPOFOL 200 MG/20 ML VIAL ONE (07:12)
[2018-04-17] MEDS ORDERED: ceFAZolin 2 GM/DEXTROSE 100 ML IV ONE (09:00)
[2018-04-17] MEDS ORDERED: ACETAMINOPHEN 500 MG TAB PO PRN (09:21)
[2018-04-17] MEDS ORDERED: ONDANSETRON 4 MG/2 ML VIAL IVP PRN (09:21)
[2018-04-17] MEDS ORDERED: fentaNYL 100 MCG/2 ML INJ IVP PRN (09:21)
[2018-04-17] MEDS ORDERED: ALBUTEROL 3 ML DEYVIAL IH PRN (09:21)
[2018-04-17] MEDS ORDERED: NALOXONE HCL 0.4 MG/ML INJ IVP PRN (09:21)
[2018-04-17] MEDS ORDERED: HYDROCODONE/APAP 5/325 TAB PO PRN (09:21)
[2018-04-17] MEDS ORDERED: PROMETHAZINE HCL 25 MG/ML INJ IVP PRN (09:21)
[2018-04-17] MEDS ORDERED: oxyCODONE IR 5 MG TAB PO PRN (09:21)
--- NOTE | 2018-04-17 09:22 | POSTANESTH ---
Post Anesthetic Evaluation Cardiovascular Status: Normal, Stable Respiratory Status: Normal, Stable Level of Consciousness/Mental Status: Can Participate in Eval, Mildly Sleepy, Arousable Pain Control: Adequate, Prn Tx Ordered Nausea/Vomiting Control: Adequate, Prn Tx Ordered Complications Possibly Related to Anesthesia: None Noted
[2018-04-17 10:27] VITALS: BP 114/60
[2018-04-17] MEDS ORDERED: HYDROCODONE/APAP 5/325 TAB ONE (11:17)
--- NOTE | 2018-04-18 06:14 | GOP ---
PATIENT: HEATHER PATHAK DATE OF SERVICE: 04/17/18 PATIENT DATE OF : 1955 SURGEON: Jensen Arevalo M.D. DIRECTOR REGULATORY COMPLIANCE: ROSMERY BestGirma Rowley assistance was medically necessary for patient positioning and the retraction of vital structures. ANESTHESIA: General / regional anesthesia by surgeon PRE-OPERATIVE DIAGNOSES: Right wrist arthritis (ICD-10 code M19.031 right wrist arthritis) Right wrist distal radioulnar joint subluxation (ICD-10 code S63.011S right wrist distal radioulnar joint subluxation) Right wrist extensor tenosynovitis (ICD-10 code M65.831 right wrist extensor tenosynovitis) POST-OPERATIVE DIAGNOSES: Right wrist arthritis (ICD-10 code M19.031 right wrist arthritis) Right wrist distal radioulnar joint subluxation (ICD-10 code S63.011S right wrist distal radioulnar joint subluxation) Right wrist extensor tenosynovitis (ICD-10 code M65.831 right wrist extensor tenosynovitis) Right wrist extensor tendon rupture (ICD-10 code M66.231 right wrist extensor tendon rupture) OPERATIVE PROCEDURES: CPT code 85586 -- right wrist third dorsal compartment incision CPT code 39134 -- right wrist extensor pollicis longus tenolysis CPT code 27945 -- right wrist third dorsal compartment synovectomy CPT code 45556 -- right wrist fourth dorsal compartment incision CPT code 00318 -- right wrist extensor digitorum communis tenolysis CPT code 77101 -- right wrist fourth dorsal compartment synovectomy CPT code 14511 -- right wrist posterior interosseous nerve neurectomy CPT code 35411 -- right wrist fifth dorsal compartment incision CPT code 26244 -- right wrist extensor digiti minimi tenolysis CPT code 78098 -- right wrist fifth dorsal compartment synovectomy CPT code 87544 -- right wrist sixth dorsal compartment incision CPT code 01082 -- right wrist extensor carpi ulnaris tenolysis CPT code 92095 -- right wrist sixth dorsal compartment synovectomy CPT code 89914 -- right wrist distal radioulnar joint arthrotomy with triangular fibrocartilage complex repair CPT code 08171 -- right wrist distal ulnar shortening CPT code 09384 -- right wrist distal radioulnar joint soft tissue stabilization CPT code 39548 -- right wrist extensor tendon repair, secondary (extensor digitorum communis to ring finger) CPT code 41416 -- right wrist extensor tendon repair, secondary (extensor digitorum communis to small finger) EBL: 2cc COMPLICATIONS: None TOURNIQUET TIME: 102 minutes at 250 mmHg IMPLANTS: None BRIEF CLINICAL NOTE: This is a very pleasant 63 year old female with a significant history for right wrist extensor tenosynovitis due to distal radioulnar joint arthritis and instability (Lazaro-Jeanmarie type syndrome). As such, I discussed the risks, benefits, alternatives, and complications associated with both non-operative (specifically, observation, splinting, NSAIDs , activity modifications, injection) and operative (specifically, right wrist extensor compartment incision with extensor tenolysis and tenosynovectomy and extensor tendon debridement and/or repair, right wrist distal radiolulnar joint arthrotomy with distal ulnar shortening, triangular fibrocartilage complex repair, and distal radioulnar joint soft tissue stabilization) forms of treatment. The patient fully understands the risks, benefits, alternatives, and complications associated with both forms of treatment and wishes to proceed with operative intervention as outlined above. The patient has signed the informed consent form for surgery. OPERATIVE NOTE: On the day of surgery, all of the patients questions were answered. The patient was then transferred from the pre-operative area into the operating room and a formal, Time-Out procedure was performed. The patient was identified by name, medical record number, social security number, and date of . In addition, the patients right upper extremity was identified as the correct portion of the patients body for surgery with the patients right wrist being identified as the correct portion of that extremity for surgery. The anesthesia team administered pre-operative antibiotics for prophylaxis. The brachium was padded with webril and an 18-inch tourniquet was applied. The extremity was then prepped and draped in the normal sterile fashion. A sterile marking pen was then utilized to gurpreet out a longitudinal incision overlying the 4-5 interval. An Esmarch was then utilized to exsanguinate the upper extremity and the tourniquet was inflated to 250mm Hg. A number 15 blade was used to incise the skin. Meticulous hemostasis was obtained in the subcutaneous plane. Superficial sensory nerve branches were identified and protected. The extensor retinaculum was incised at the 3-4, 4-5 , and 5-6 intervals. The following structures were identified and evaluated: Extensor pollicis longus: hypertrophic synovial tissue Extensor indicis proprius: hypertrophic synovial tissue Extensor digitorum communis to index: hypertrophic synovial tissue Extensor digitorum communis to long: hypertrophic synovial tissue Extensor digitorum communis to ring: hypertrophic synovial tissue, partial thickness fraying Extensor digitorum communis to small: hypetrophic synovial tissue, parital thickness fraying Extensor digiti minimi: hypertrophic synovial tissue Extensor carpi ulnaris: hypertrophic synovial tissue All of the extensor tendons were release from scar tissue (tenolysis) and carefully stripped of hypertrophic synovial tissue (synovectomy). The posterior interosseous nerve was identified in the floor of the fourth dorsal compartment and a one centimeter segment was resected with bipolar cautery to prevent neuroma formation. The capsule overlying the dorsal distal ulna was then carefully inspected and found to have a full thickness defect due to a dorsal distal ulna osteophyte as well as distal radio-ulnar joint instability. As such, an L-shaped capsular incision was made overlying the distal radio-ulnar joint (arthrotomy) to expose the dorsal aspect of the triangular fibrocartilage complex, the distal radio- ulnar joint, and the dorsal distal ulna. The dorsal distal ulna was then resected (ulnar shortening) with a 4.0mm round ceasar to create a level surface for the overlying extensor tendons. The triangular fibrocartilage complex was repaired with 2-0 vicryl sutures and the distal radio-ulnar joint was stabilized by imbricating the dorsal capsule over the ulnar head with 2-0 vicryl sutures. PA, lateral, and oblique C-arm images were obtained which demonstrated an appropriate resection of the dorsal distal ulna as well as stabilization of the distal radio-ulnar joint. These images were printed and saved. Attention was then turned to the extensor tendons. Each of frayed extensor tendons were addressed as follows: Extensor digitorum communis to ring: debridement and tubularization with 6-0 prolene suture Extensor digitorum communis to small: debridement and tubularization with 6-0 prolene suture The wound was then copiously irrigated with sterile normal saline. The extensor retinaculum was re-approximated with 3-0 vicryl sutures. The subcutaneous plane was re-approximated with 3-0 vicryl sutures and the skin was re-approximated with a running 4-0 monocryl. The skin was then cleaned with sterile normal saline and dried. Dermabond was applied to the incision. A mixture of 1% lidocaine and 0.5% Marcaine was then utilized to perform a regional block of the operative site. A xeroform gauze dressing was applied followed by a dry sterile dressing and a sugar tong splint maintaining the elbow at 90 degrees and the forearm in neutral rotation. Once the splint was in place, the tourniquet was deflated. After complete deflation of the tourniquet, all fingers and the thumb demonstrated brisk capillary refill. The patient was then reversed from anesthesia and transferred from the operating room table onto the post- operative gurney and transferred from the operating room to the post-anesthesia care unit in stable condition. POST-OPERATIVE PLAN: The patient will remain in the current splint and dressing for the next 2 weeks. During the next two week, she will initiate immediate finger and thumb range of motion within the splint. After 2 weeks, I will see the patient back in the office for splint removal and the initiation of CHT for wrist and forearm range of motion. /[id number]/MODL MTDD
== END 2018-04-17 12:21 | disposition home or self-care (01) ==
LOC: FSGY 05:44
PROVIDERS: ATTEND Orthopaedic Surgery Hand Surgery
PROC: 0RQN0ZZ Repair Right Wrist Joint, Open Approach (ICD-10-PCS; principal; 2018-04-17 07:15)
PROC: 0LQ50ZZ Repair Right Lower Arm and Wrist Tendon, Open Approach (ICD-10-PCS; principal; 2018-04-17 07:15)
PROC: 0PQ Upper Bones, Repair (ICD-10-PCS; principal; 2018-04-17 07:15)
DX: M19.031 Primary osteoarthritis, right wrist (principal); S63.01 Subluxation and dislocation of distal radioulnar joint; M65.831 Other synovitis and tenosynovitis, right forearm; M66.231 Spontaneous rupture of extensor tendons, right forearm; X58.XXXS Exposure to other specified factors, sequela
CPT/HCPCS: J0690; J2250; J2704; J3010

== ENCOUNTER 2018-06-27 10:16 | Day surgery (SDC) | payer OTHER ==
[2018-06-27] MEDS ORDERED: LR 1,000 ML IV ONE (10:43)
[2018-06-27] MEDS ORDERED: LIDOCAINE 1% 2 ML INJ ID PRN (10:43)
[2018-06-27] MEDS ORDERED: MIDAZOLAM 2 MG/2 ML VIAL IVP ONE (11:40)
--- NOTE | 2018-06-27 11:40 | PDANEPAE ---
ANE History of Present Illness 63 yo for colonoscopy ANE Past Medical History - Cardiovascular History Hx Hypertension: No Hx Arrhythmias: No Hx Chest Pain: No Hx Coronary Artery / Peripheral Vascular Disease: No Hx CHF / Valvular Disease: No Hx Palpitations: No - Pulmonary History Hx COPD: No Hx Asthma/Reactive Airway Disease: No Hx Recent Upper Respiratory Infection: No Hx Oxygen in Use at Home: No Hx Sleep Apnea: No Sleep Apnea Screening Result - Last Documented: Negative Pulmonary History Comment: hx of lung nodules that are stable currently per pt report - Neurologic History Hx Cerebrovascular Accident: No Hx Seizures: No Hx Dementia: No Neurologic History Comment: pinched nerve in c-spine causing right arm numbness - unable to lay on right side. doing PT currently - Endocrine History Hx Diabetes: No - Renal History Hx Renal Disorders: No - Liver History Hx Hepatic Disorders: No - Neurological & Psychiatric Hx Hx Neurological and Psychiatric Disorders: No - Cancer History Hx Cancer: No - Congenital Disorder History Hx Congenital Disorders: No - GI History Hx Gastrointestinal Disorders: No Gastrointestinal History Comment: hiatal hernia. occ reflux. hx of diverticulitis in 07/2017 was hospitalized at [facility]. hx of colonography r/t scar tissue from hysterectomy - Other Health History Other Health History: wears glasses - Chronic Pain History Chronic Pain: No - Surgical History Prior Surgeries: left hand ganglion cyst removal 04/2018. Hysterectomy apprx 20 yr ago. right big toe joint replacement ANE Review of Systems Review of Systems: - Exercise capacity METS (RN): 4 METS ANE Patient History - Allergies Allergies/Adverse Reactions: Penicillins Allergy (Verified 04/17/18 06:11) nausea/vomiting Sulfa (Sulfonamide Antibiotics) Allergy (Verified 04/17/18 06:11) Hives - Home Medications Home Medications: Estradiol 07/31/17 [Last Taken 06/25/18] Adult One Daily Multivit Tab 06/20/18 [Last Taken 06/20/18] - NPO status NPO Status: no food or drink >8 hours NPO Since - Liquids (Date): 06/27/18 NPO Since - Liquids (Time): 03:00 NPO Since - Solids (Date): 06/26/18 NPO Since - Solids (Time): 09:00 - Anes Hx Anes Hx: no prior problems - Smoking Hx Smoking Status: Former smoker - Family Anes Hx Family Hx Anesthesia Complications: None ANE Labs/Vital Signs - Vital Signs Blood Pressure: 121/72 Heart Rate: 76 Respiratory Rate: 16 O2 Sat (%): 98 Height: 5 ft 4 in Weight: 62.596 kg ANE Physical Exam - Airway Neck exam: FROM Mallampati Score: Class 2 Mouth exam: normal dental/mouth exam - Pulmonary Pulmonary: no respiratory distress - Cardiovascular Cardiovascular: regular rate and rhythym - ASA Status ASA Status: I ANE Anesthesia Plan Anesthesia Plan: GA with mask (IVGA), MAC
[2018-06-27] MEDS ORDERED: PROPOFOL/EMULSION 500 MG/50 ML BOTTLE IV ONE (11:56)
--- NOTE | 2018-06-27 12:11 | PDGENHP ---
History & Physical Chief Complaint: screening, hx diverticulitis Pertinent Past, Social, Family History: no tobacco, rare alcohol. fhx no colon cancer. no sdig PHx Relevant Physical Exam: a+ox3. CTA. S1S2. +Bs, soft nt Cardiorespiratory Assessment: class 2
--- NOTE | 2018-06-27 12:52 | GIREPORT ---
[facility] - Endoscopy Department Patient Name: Melissa Griffith Procedure Date: 06/27/2018 12:16 PM Patient Type: Outpatient Attending MD/ ER Physician: Charli Johnson MD Procedure: Colonoscopy Indications: Screening for colorectal malignant neoplasm Providers: Charli Johnson MD Referring MD: Cecile Lucas MD Medicines: Propofol per Anesthesia = IV general with spontaneous respirations Complications: No immediate complications. Estimated blood loss: Minimal. Description of Procedure: After obtaining informed consent, the scope was passed under direct vis ion. Throughout the procedure, the patient's blood pressure, pulse, and oxyg en saturations were monitored continuously. The Colonoscope with irrigatio n channel was introduced through the anus and advanced to the terminal il eum, with identification of the appendiceal orifice and IC valve. The colono scopy was technically difficult and complex due to post-surgical anatomy and restricted mobility of the colon. The patient tolerated the procedure w ell. The quality of the bowel preparation was good. Findings: The digital rectal exam was normal. The terminal ileum appeared normal. A 5 mm polyp was found in the transverse colon. The polyp was semi-sess ile. The polyp was removed with a cold snare. Resection and retrieval were complete. Estimated blood loss was minimal. Multiple medium-mouthed diverticula were found in the sigmoid colon and descending colon. The exam was otherwise without abnormality. Estimated Blood Loss: Estimated blood loss was minimal. Post Op Diagnosis: - The examined portion of the ileum was normal. - One 5 mm polyp in the transverse colon, removed with a cold snare. Resected and retrieved. - Diverticulosis in the sigmoid colon and in the descending colon. - The examination was otherwise normal. Recommendation: - Await pathology results. - My office will call with the pathology result with 5-7 days. If you h ave not heard from my office by -14, do not assume the pathology is camelia l, please call [phone] to get the pathology results. - Repeat colonoscopy in 5 years for surveillance. - High fiber diet indefinitely. - 30-35 grams of dietary fiber per day. Can use supplemental fiber. - A high fiber diet may decrease risk of complications from diverticulo sis. There is no need to avoid seeds or nuts. - Patient has a contact number available for emergencies. The signs and symptoms of potential delayed complications were discussed with the pat ient. Return to normal activities tomorrow. Written discharge instructions we re provided to the patient. - Continue present medications. - Discharge patient to home (ambulatory). - Return to primary care physician as previously scheduled. - Thank you for allowing me to help in your patient's care. Do not hesi garvey to call with any questions. Attending Participation: I personally performed the entire procedure. Elizabeth Sol M.D Charli Johnson MD 06/27/2018 12:51:37 PM This report has been signed electronicallyMatthew MD Elizabeth Number of Addenda: 0 Note Initiated On: 06/27/2018 12:16 PM Total Procedure Duration Time 0 hours 21 minutes 0 seconds [email or web address]
[2018-06-27] MEDS ORDERED: fentaNYL 100 MCG/2 ML INJ IVP PRN (13:22)
[2018-06-27] MEDS ORDERED: ONDANSETRON 4 MG/2 ML VIAL IVP PRN (13:22)
[2018-06-27] MEDS ORDERED: NALOXONE HCL 0.4 MG/ML INJ IVP PRN (13:22)
--- NOTE | 2018-06-27 13:23 | POSTANESTH ---
Post Anesthetic Evaluation Cardiovascular Status: Normal, Stable Respiratory Status: Normal, Stable Level of Consciousness/Mental Status: Can Participate in Eval Pain Control: Adequate, Prn Tx Ordered Nausea/Vomiting Control: Adequate, Prn Tx Ordered Complications Possibly Related to Anesthesia: None Noted
[2018-06-27 14:05] VITALS: BP 136/86
== END 2018-06-27 14:10 | disposition home or self-care (01) ==
LOC: FSGY 10:16
PROVIDERS: ATTEND Internal Medicine Gastroenterology
PROC: 0DBL8ZX Excision of Transverse Colon, Via Natural or Artificial Opening Endoscopic, Diagnostic (ICD-10-PCS; principal; 2018-06-27 12:00)
DX: Z12.11 Encounter for screening for malignant neoplasm of colon (principal); D12.3 Benign neoplasm of transverse colon; K57.30 Diverticulosis of large intestine without perforation or abscess without bleeding; R91.8 Other nonspecific abnormal finding of lung field; G58.9 Mononeuropathy, unspecified; Z87.891 Personal history of nicotine dependence
CPT/HCPCS: J2704

== ENCOUNTER → 2018-11-28 | Outpatient (CLI) | payer OTHER | LOC: EMCIMAGING 13:58 | PROVIDERS: ATTEND Physician Assistant | DX: M25.561 Pain in right knee (principal); S83.241A Other tear of medial meniscus, current injury, right knee, initial encounter; S83.511S Sprain of anterior cruciate ligament of right knee, sequela | CPT/HCPCS: 73721-PN ==

== ENCOUNTER → 2019-01-14 | Outpatient (CLI) | payer OTHER | LOC: EMCIMAGING 14:03 ==